=== PATIENT | female | born 1995 | race Caucasian/White ===

== ENCOUNTER 2024-04-20 09:35 | Outpatient (REF) | payer MEDICAID, SELFPAY ==
[2024-04-20 14:08] LABS: MANUAL DIFF FLAG NO
[2024-04-20 14:17] LABS: Basophils Percent Auto 0.2 % (0-2); Eosinophils Percent Auto 0.2 % (0-4); Hematocrit 39.2 % (37.0-47.0); Hemoglobin 12.9 g/dl (12.0-16.0); Imm Gran Abs Auto 0.02 X10*3/uL (0.00-0.03); Imm Gran Pct Auto 0.5 % (0.0-0.4); Lymphocytes Absolute Auto 1.4 X10*3/uL (1.2-4.9); Lymphocytes Percent Auto 32.1 % (20-40); Mean Corpuscular HGB Conc 32.9 g/dl (31.0-35.0); Mean Corpuscular Hemoglobin 28.2 pg (27.0-33.0); Mean Corpuscular Volume 85.8 fL (80.0-98.0); Mean Platelet Volume 10.5 fL (9.4-12.3); Monocytes Absolute Auto 0.3 X10*3/uL (0.1-1.2); Monocytes Percent Auto 6.3 % (2-11); Neutrophils Absolute Auto 2.7 x10*3/uL (2.0-8.3); Neutrophils Percent Auto 60.7 % (45-73); Platelet Count 263 X10*3/uL (160-400); Red Blood Count 4.57 X10*6/uL (4.20-5.50); Red Cell Distribution Width 13.2 % (11.0-16.0); White Blood Count 4.4 X10*3/uL (4.8-10.8)
[2024-04-20 14:27] LABS: Estimated Average Glucose 105 mg/dL; Hemoglobin A1C 121.7376 umol/L; Hemoglobin A1c % 5.3 % (<6.0); Total Hemoglobin (HGBA1C) 3507.0445 umol/L
[2024-04-20 14:44] LABS: Alanine Aminotransferase 16 U/L (0-31); Albumin Level 4.2 g/dL (3.5-5.0); Alkaline Phosphatase 66 U/L (39-117); Anion Gap 9 (12-20); Aspartate Amino Transferase 21 U/L (5-31); Bilirubin Direct 0.2 mg/dL (0.0-0.5); Bilirubin Total 0.4 mg/dL (0.0-1.0); Blood Urea Nitrogen 8 mg/dL (9-16); Calcium 9.2 mg/dL (8.4-10.2); Carbon Dioxide 28 mmol/L (22-29); Chloride 105 mmol/L (96-108); Cholesterol 143 mg/dL (<200); Estimated Glomerular Filt Rate > 60; Glucose Fasting 79 mg/dL (60-99); HDL Cholesterol 51 mg/dL (>40); LDL Cholesterol Calculated 83 mg/dL (<100); Potassium 3.8 mmol/L (3.3-5.1); Sodium 138 mmol/L (135-145); Total Protein 6.8 g/dL (6.5-8.0); Triglycerides 49 mg/dL (<150)
[2024-04-20 15:01] LABS: TSH reflex Free T4 1.56 uIU/mL (0.32-4.0)
== END 2024-04-20 09:36 | disposition home or self-care (01) ==
LOC: HO.CHCLDS 09:35
PROVIDERS: Visit Provider Pediatrics
DX: K29.70 Gastritis, unspecified, without bleeding (principal); E28.2 Polycystic ovarian syndrome
CPT/HCPCS: 36415; 80048; 80061; 80076; 83036; 84443; 85025

== ENCOUNTER 2024-05-16 16:31 | Outpatient (REF) | payer MEDICAID, SELFPAY ==
[2024-05-17 12:17] LABS: Adenovirus PCR Not Detected (Not Detect.); Bordetella parapertussis PCR Not Detected (Not Detect.); Bordetella pertussis PCR Not Detected (Not Detect.); Chlamydia pneumoniae PCR Not Detected (Not Detect.); Coronavirus 229E PCR Not Detected (Not Detect.); Coronavirus HKU1 PCR Not Detected (Not Detect.); Coronavirus NL63 PCR Not Detected (Not Detect.); Coronavirus OC43 PCR Not Detected (Not Detect.); Human metapneumovirus PCR Not Detected (Not Detect.); Influenza A PCR Not Detected (Not Detect.); Influenza B PCR Not Detected (Not Detect.); Mycoplasma pneumoniae PCR Not Detected (Not Detect.); Parainfluenza 1 PCR Not Detected (Not Detect.); Parainfluenza 2 PCR Not Detected (Not Detect.); Parainfluenza 3 PCR Not Detected (Not Detect.); Parainfluenza 4 PCR Not Detected (Not Detect.); RSV PCR Not Detected (Not Detect.); Rhino/Enterovirus PCR Not Detected (Not Detect.)
[2024-05-17 13:23] LABS: SARS-CoV-2 PCR Not Detected (Not Detect.)
== END 2024-05-16 16:32 | disposition home or self-care (01) ==
LOC: HO.CHCLNP 16:31
PROVIDERS: Visit Provider Registered Nurse
DX: B34.9 Viral infection, unspecified (principal)
CPT/HCPCS: 87633

== ENCOUNTER 2025-01-10 08:40 | Outpatient (REF) | payer MEDICAID, SELFPAY ==
--- OUTSIDE RECORDS SUMMARY | 2025-01-11 08:57 | XMS_ITS | Clinical Summary ---
Author Organization [facility] Address [address] [place] [phone] Phone Care Team Providers Care Lining Ironer Name Role Phone Unavailable Primary Care Provider [...]
--- OUTSIDE RECORDS SUMMARY | 2025-01-11 08:57 | XMS_ITS | Clinical Summary ---
Author Organization [facility] ity Address [address] [place] [address] Care Team Providers Care Gun Mechanic Name Role Phone Unavailable Primary Care Provider [...]
--- OUTSIDE RECORDS SUMMARY | 2025-01-11 08:57 | XMS_ITS | Encounter Summary ---
Author Organization [employer] Address [address] [facility] 7 [place] [address] Care Team Providers Care Assembler Installer Structures Name Role Phone Lisa Reddy MD Primary Care Provider [phone] Encounter Details Date Type Department Care Team ([facility] Contact Info) Description 04/20/[address] [facility] CHC MED & PEDS [address] [place], [place] [phone] Lisa Reddy MD [address] [place] [address] Social History Tobacco Use Types Packs/Day Years [...] EST) Adenovirus PCR Not Detected Not Detect. [facility] Bordetella pertussis PCR Not Detected Not Detect. [facility] Comment:Interpret results wi th caution. If B. pertussis isspecifically suspected, additional testing using analternate method is recommended. Bordetella parapertussis PCR Not Detected Not Detect. [facility] Chlamydia pneumoniae PCR Not Detected Not Detect. [facility] Coronavirus 229E PCR Not Detected Not Detect. [facility] Coronavirus HKU1 PCR Not Detected Not Detect. [facility] Coronavirus NL63 PCR Not Detected Not Detect. [facility] Coronavirus OC43 PCR Not Detected Not Detect. [facility] SARS-CoV-2 PCR Not Detected Not Detect. [facility] Comment:SARS-CoV-2 not detec tato by real-time RT-PCR.Note: If clinical suspicion for Sars-CoV-2 is high, continueto maintain precautions and consider repeat testing.Test results should be interpreted in the context ofclinical findings and other laboratory data.Rare polymorphisms exist that could lead to false-negativeor false-positive results. If results do not match theclinical findings, additional testing should be considered.Results reported to [facility].This test has been authorized by the FDA under the EmergencyUse Authorization (EUA) for use by authorized laboratories. Influenza A PCR Not Detected Not Detect. [facility] Influenza B PCR Not Detected Not Detect. [facility] Human metapneumovirus PCR Not Detected Not Detect. [facility] Rhino/Enterovirus PCR Not Detected Not Detect. [facility] Mycoplasma pneumoniae PCR Not Detected Not Detect. [facility] Parainfluenza 1 PCR Not Detected Not Detect. [facility] Parainfluenza 2 PCR Not Detected Not Detect. [facility] Parainfluenza 3 PCR Not Detected Not Detect. [facility] Parainfluenza 4 PCR Not Detected Not Detect. [facility] RSV PCR Not Detected Not Detect. [facility] Resp Panel NA Note See Note [facility] Comment:All results must be correlated [...] assay is performed by Multiplexed PCR, utilizing [employer]. 05/16/2024 3:00 PM EST 05/16/2024 5:23 PM EST us Chanel Caputo [facility] BLOOD ORDERABLES Final Res ult [facility] [address] [place] [address] [phone] documented in this encounter Visit Diagnoses Not on filedocumented in this encounter Additional Health Concerns Assessment Noted Time PHQ-9 Depression Total Score: 11 024 12:10 PM EDT documented as of this encounter Care Teams Assembler Installer Structures Relationship Specialty Start Date End Date Lisa Reddy MD [address] [place] [address] PCP - General Family Medicine 04/05/12 documented as of this encounter
--- OUTSIDE RECORDS SUMMARY | 2025-01-11 08:57 | XMS_ITS | Clinical Summary ---
Author Organization [facility] Address [address] [place] [address] Care Team Providers Care Side Trimmer Name Role Phone Unavailable Primary Care Provider [...] mcg/actuation inhalerIndication s:Mild intermittent asthma without complication ([facility]),Routine general medical examination at a health care facility Inhale 2 Puffs into the lungs every 4 (four) hours as needed for shortness of breath or wheezing 18 g 2 Active doxycycline hyclate (VIBRAMYCIN) 100 mg capsuleIndication s:Chlamydia Take 1 Capsule by mouth 2 (two) times daily 14 Capsule 1 2 Active fluoride, sodium, (CLINPRO 5000) 1.1 % psteIndications:C adrianna [place] twice a day every day for 2 minutes. Expectorate,bu t do not rinse,eat or drink for 30 minutes after using this. 112 g 3 2 Active Active Problems No known active problems Immunizations Immunization Administration Dates Next Due DTAP (DAPTACEL),5 PERTUSSIS ANTIGENS ,07/09/1997,1996,07/30,1996 Flu, Multi Dose 0.5 ML 03/30/2018,04/15/2017, Flu, Preservative Free 03/14/2022,03/14/2014 HEP B, PED/ADOL (QYORXDH-P-NVSJ/RECOMBIVAX-PEDS) 1996,1996,1996 HPV 9 (Gardasil) 06/28/2019 HPV, QUADRIVALENT 10/08/2007,06/09/2007,04/07/20 07 Hep B,adult,adjuvanted (HEPLISAV) 10/21/2021,10/21/2021 Hib (HbOC) 07/06/1997, 7,1996,10/1996 INFLUENZA, SEASONAL, INJECTABLE 03/08/2009,04/07 IPV (IPOL) 08/17/2000, 7,1996,10/1996 MENINGOCOCCAL MCV4P (MENACTRA) 12/08/2014,2006 MMR (MMR II/Priorix) 08/17/2000 Moderna COVID-19 Vaccine, re d cap blue label, 12+ Primary Series 10/16/2020,09/19/2020 [facility] State Funded Flu Vaccine 03/18/2013, 012,05/02/2010 TDAP [...] 08/29/2022 08/29/2021 Relationship Safety Screening/Counseling 08/29/2022 08/29/2021 [id number] ( season) 01/31/202418/2 021, 09/19/2020 Alcohol and [...] AG/AB, 4TH GEN NON-REAC TIVE NON-REAC TIVE [employer] [facility] Comment: HIV-1 antigen and HIV-1/HIV-2 antibodies [...] purpose. For additional information please refer to http://education.[employer]/faq/YMZ368 (This link is being provided for informational/ educational purposes only.) The performance of this assay has not been clinically validated in patients less than 2 years old. Blood Blood / Unknown 08/29/2021 2 :12 PM EDT 08/29/2021 2:13 PM EDT Morales Hooker PA-C LAB - BLOOD DRAW Final Result [facility] [address] [address], [employer] [facility] [address],[facility] [place] [address] from Last 3 Months or Most Recently Relevant to Health Maintenance Insurance [employer] Member Subscriber Plan / Payer (Ef fective 2021-Present) Name:Yesy Rojas Relation to Subscriber:Self Name:Yesy Rojas Payer ID:[id number] Type:Indemnity Address: [address] [address] [place] [address] [place]
== END 2025-01-10 08:41 | disposition home or self-care (01) ==
LOC: HO.LNP 08:40
PROVIDERS: Visit Provider Pediatrics
DX: Z01.419 Encounter for gynecological examination (general) (routine) without abnormal findings (principal); F41.9 Anxiety disorder, unspecified; F33.1 Major depressive disorder, recurrent, moderate
CPT/HCPCS: 88175

== ENCOUNTER 2025-01-10 10:03 | Outpatient (REF) | payer MEDICAID, SELFPAY ==
--- OUTSIDE RECORDS SUMMARY | 2025-01-10 11:02 | XMS_ITS | Encounter Summary ---
Author Organization [employer] Address [address] [facility] 7 [place] [address] Care Team Providers Care Cataract Lens Generator Name Role Phone Lisa Reddy MD Primary Care Provider [phone] Encounter Details Date Type Department Care Team ([facility] Contact Info) Description 04/20/2024 Orders Only [facility] CHC MED & PEDS [address] [place], [place] [phone] Lisa Reddy MD [address] [place] [address] Social History Tobacco Use Types Packs/Day Years Used Date Smoking Tobacco: Never Passive Smoke Exposure: Never Smokeless Tobacco: Never Alcohol Use Standard Drinks/Week Comments Never 0 (1 standard drink = 0.6 oz pur e alcohol) Depression Answer Date Recorded Patient Health Questionnaire-9 Score 11 02/19/2024 Patient Health Questionnaire-9 Score 11 02/19/2024 Last PHQ-9: Questionnaire Data Not on file 0 02/19/2024 Housing Stability Answer Date Recorded What is your housing situation today? I have alicia leigh 12/31/[address] you li ve. Do you have problems with any of the following? None of the above 12/31/2023 Food Insecurity Answer Date Recorded Within the past 12 months, y ou worried that your food would run out before you got money to buy more: Never True 12/31/2023 Within the past 12 months,th e food you bought just didn't last and you didn't have enough money to get more: Never True 06/2023 Transportation Answer Date Recorded In the past 12 months, has l ack of transportation kept you from medical appts, meetings, work or from getting things needed for daily living? No 12/31/2023 Utilities Answer Date Recorded In the past 12 months, has t he electric, gas, oil or water company threatened to shut off services in your home? No 12/31/2023 Depression Answer Date Recorded Patient Health Questionnaire-2 Score 3 02/19/2024 Internet Access Answer Date Recorded Internet Access Q1 Yes 02/01/2024 Internet Access Q2 Not on file 02/01/2024 Comments Unknown Sex and Gender Information Value Date Recorded Sex Assigned at Female 03/31/2022 10:22 AM EDT Legal Sex Female 10:22 AM EDT Gender Identity Female 03/31/2022 10:22 AM EDT Sexual Orientation Straight 03/31/2022 10 :22 AM EDT documented as of this encounter Plan of Treatment Not on file documented as of this encounter Procedures Procedure Name Priority Date/Time Associated Diagnosis Comments RESPIRATORY VIRAL PANEL PCR Routine 05/16/2024 3:00 PM EST documented in this encounter Results * Respiratory Viral Panel PCR (05/16/2024 3:00 PM EST) Adenovirus PCR Not Detected Not Detect. [facility] Bordetella pertussis PCR Not Detected Not Detect. [facility] Comment:Interpret results wi th caution. If B. pertussis isspecifically suspected, additional testing using analternate method is recommended. Bordetella parapertussis PCR Not Detected Not Detect. [facility] Chlamydia pneumoniae PCR Not Detected Not Detect. [facility] Coronavirus 229E PCR Not Detected Not Detect. [facility] Coronavirus HKU1 PCR Not Detected Not Detect. [facility] Coronavirus NL63 PCR Not Detected Not Detect. [facility] Coronavirus OC43 PCR Not Detected Not Detect. [facility] SARS-CoV-2 PCR Not Detected Not Detect. [facility] Comment:SARS-CoV-2 not detec tato by real-time RT-PCR.Note: If clinical suspicion for Sars-CoV-2 is high, continueto maintain precautions and consider repeat testing.Test results should be interpreted in the context ofclinical findings and other laboratory data.Rare polymorphisms exist that could lead to false-negativeor false-positive results. If results do not match theclinical findings, additional testing should be considered.Results reported to [facility].This test has been authorized by the FDA under the EmergencyUse Authorization (EUA) for use by authorized laboratories. Influenza A PCR Not Detected Not Detect. [facility] Influenza B PCR Not Detected Not Detect. [facility] Human metapneumovirus PCR Not Detected Not Detect. [facility] Rhino/Enterovirus PCR Not Detected Not Detect. [facility] Mycoplasma pneumoniae PCR Not Detected Not Detect. [facility] Parainfluenza 1 PCR Not Detected Not Detect. [facility] Parainfluenza 2 PCR Not Detected Not Detect. [facility] Parainfluenza 3 PCR Not Detected Not Detect. [facility] Parainfluenza 4 PCR Not Detected Not Detect. [facility] RSV PCR Not Detected Not Detect. [facility] Resp Panel NA Note See Note [facility] Comment:All results must be correlated with clinical findings.Negative results should not be used as the sole basis fordiagnosis, treatment, or other management decisions.A negative result does not exclude the possibility of viralor bacterial infection. Negative results may occur from thepresence of sequence variants in the region targeted by theassay, the presence of inhibitors, an infection caused by anorganism not detected by the panel, or lower respiratorytract infections that are not detected by a nasopharyngealswab specimen. Test results may also be affected byconcurrent antiviral/antibacterial therapy or levels oforganism in the specimen that are below the limit ofdetection for this test.This assay is performed by Multiplexed PCR, utilizing [employer] Film Array. 05/16/2024 3:00 PM EST 05/16/2024 5:23 PM EST us Chanel Caputo [facility] BLOOD ORDERABLES Final Res ult [facility] [address] [place] [address] [phone] documented in this encounter Visit Diagnoses Not on filedocumented in this encounter Additional Health Concerns Assessment Noted Time PHQ-9 Depression Total Score: 11 024 12:10 PM EDT documented as of this encounter Care Teams Cataract Lens Generator Relationship Specialty Start Date End Date Lisa Reddy MD [address] [place] [address] PCP - General Family Medicine 04/05/12 documented as of this encounter
--- OUTSIDE RECORDS SUMMARY | 2025-01-10 11:02 | XMS_ITS | Clinical Summary ---
Author Organization [facility] ity Address [address] [place] [address] Care Team Providers Care Fish Agent Name Role Phone Unavailable Primary Care Provider Unavailabl e Social History Tobacco Use Types Packs/Day Years Used Date Smoking Tobacco: Never Assessed Comments Unknown Sex and Gender Information Value Date Recorded Sex Assigned at Not on file Legal Sex Female 9:00 AM EST Gender Identity Not on file Sexual Orientation Not on file Plan of Treatment Health Maintenance Due Date Last Done Comments DTaP,Tdap,and Td Vaccines (1 - Tdap) 2015 Hepatitis B Vaccines (1 of 3 - 19+ 3-dose series) 2015 Cervical Cancer Screening: P ap Smear 2017 HIV Screening 05/04/2022 Hepatitis C Screening 05/04/2022 Social Influencers of Health Screening 05/04/2022 COVID-19 Vaccine ( - 2023-2 5 season) 2024 Depression Screening 06/01/2024 Influenza Vaccine (#1) 2025 HIB Vaccines Aged Out No longer eligi ble based on patient's age to complete this topic HPV Vaccines Aged Out No longer eligi ble based on patient's age to complete this topic Hepatitis A Vaccines Aged Out No long er eligible based on patient's age to complete this topic IPV Vaccines Aged Out No longer eligi ble based on patient's age to complete this topic MMR Vaccines Aged Out No longer eligi ble based on patient's age to complete this topic Meningococcal ACWY Vaccine Aged Out N o longer eligible based on patient's age to complete this topic Meningococcal B Vaccine Aged Out No l onger eligible based on patient's age to complete this topic Pneumococcal Vaccine: Pediat rics (0 to 5 Years) and At-Risk Patients (6 to 49 Years) Aged Out No longer eligible b ased on patient's age to complete this topic RSV Immunization Patients Un michael 20 months Aged Out No longer eligible b ased on patient's age to complete this topic Varicella Vaccines Aged Out No longer eligible based on patient's age to complete this topic
--- OUTSIDE RECORDS SUMMARY | 2025-01-10 11:02 | XMS_ITS | Clinical Summary ---
Author Organization [facility] Address [address] [place] [address] Care Team Providers Care Race Steward Name Role Phone Unavailable Primary Care Provider Unavailabl e Source Comments PLEASE NOTE, if this patient is a minor, it may be UNLAWFUL to discuss sensitive information that is contained in these records (such as FAMILY PLANNING, MENTAL HEALTH or SUBSTANCE ABUSE) with the minor patient's parent or other person without the patient's specific authorization.[facility] Medications ALBUTEROL INHLIndications:R outine general medical examination at a health care facility Inhale 90 mcg into the lungs as needed 9 Active albuterol sulfate 90 mcg/actuation inhalerIndication s:Mild intermittent asthma without complication ([facility]),Routine general medical examination at a health care facility Inhale 2 Puffs into the lungs every 4 (four) hours as needed for shortness of breath or wheezing 18 g 2 Active doxycycline hyclate (VIBRAMYCIN) 100 mg capsuleIndication s:Chlamydia Take 1 Capsule by mouth 2 (two) times daily 14 Capsule 1 2 Active fluoride, sodium, (CLINPRO 5000) 1.1 % psteIndications:C adrianna [place] twice a day every day for 2 minutes. Expectorate,bu t do not rinse,eat or drink for 30 minutes after using this. 112 g 3 2 Active Active Problems No known active problems Immunizations Immunization Administration Dates Next Due DTAP (DAPTACEL),5 PERTUSSIS ANTIGENS ,07/09/1997,1996,07/30,1996 Flu, Multi Dose 0.5 ML 03/30/2018,04/15/2017, Flu, Preservative Free 03/14/2022,03/14/2014 HEP B, PED/ADOL (TZXUBWQ-U-FYDL/RECOMBIVAX-PEDS) 1996,1996,1996 HPV 9 (Gardasil) 06/28/2019 HPV, QUADRIVALENT 10/08/2007,06/09/2007,04/07/20 07 Hep B,adult,adjuvanted (HEPLISAV) 10/21/2021,10/21/2021 Hib (HbOC) 07/06/1997, 7,1996,10/1996 INFLUENZA, SEASONAL, INJECTABLE 03/08/2009,04/07 IPV (IPOL) 08/17/2000, 7,1996,10/1996 MENINGOCOCCAL MCV4P (MENACTRA) 12/08/2014,2006 MMR (MMR II/Priorix) 08/17/2000 Moderna COVID-19 Vaccine, re d cap blue label, 12+ Primary Series 10/16/2020,09/19/2020 [facility] Flu Vaccine 03/18/2013, 012,05/02/2010 TDAP 12/08/2014,04/07/2007 Td (adult),2 Lf tetanus toxo id (TDVAX), preservative free 11/08/2021 Varicella (Varivax), Live Vaccine 12/19/2008, Social History Tobacco Use Types Packs/Day Years Used Date Smoking Tobacco: Never Smokeless Tobacco: Never Alcohol Use Standard Drinks/Week Comments Yes 0 (1 standard drink = 0.6 oz pur e alcohol) occ Social Connections Answer Date Recorded Connectedness 0 02/07/2024 Financial Resource Strain Answer Date R ecorded Financial Resource Strain 0 2020 Stress Answer Date Recorded Stress 0 09/19/2020 Physical Activity Answer Date Recorded Physical Activity 0 09/19/2020 Food Insecurity Answer Date Recorded Food 0 02/25/2024 Transportation Needs Answer Date Record ed Transportation 0 09/19/2020 Housing Stability Answer Date Recorded Housing 0 09/19/2020 Safety and Environment Answer Date Trent rded Safety 0 08/29/2021 Utilities Answer Date Recorded Utilities 0 09/19/2020 Employment Answer Date Recorded Employment 0 09/19/2020 Comments No Sex and Gender Information Value Date Recorded Sex Assigned at Female 09/05/2021 6:45 AM PDT Legal Sex Female 11:00 AM PST Gender Identity Female 09/05/2021 6:45 AM PDT Sexual Orientation Straight 09/05/2021 6: 45 AM PDT Last Filed Vital Signs Vital Sign Reading Time Taken Comments Blood Pressure 114/75 12/19/2021 9:47 AM EDT Pulse 66 12/19/2021 9:47 AM EDT Temperature 37.2 C (99 F) 08/29/2021 1:19 PM EDT Respiratory Rate - - Oxygen Saturation 98% 08/29/2021 1:19 PM EDT Inhaled Oxygen Concentration - - Weight 57.6 kg (127 lb) 08/29/2021 1:19 PM EDT Height 144.8 cm (4' 9 ) 08/29/2021 1:19 PM EDT Body Mass Index 27.48 08/29/2021 1:19 PM EDT Plan of Treatment Health Maintenance Due Date Last Done Comments Anxiety Screening 1996 Dental FMX/Pano 1996 HPV Screening 1996 Hepatitis C Screening 1996 Pap + HPV 1996 Tobacco Screening 1996 Cervical Cancer Screening 2017 Pap Smear 2017 Annual Wellness (Adult): Indicated (All Coverage) 08/29/2022 08/29/2021 Relationship Safety Screening/Counseling 08/29/2022 08/29/2021 [id number] ( season) 01/31/202418/2 021, 09/19/2020 Alcohol and Drug Screen 06/01/2024 08/29/2021 Depression Annual Screen 06/01/2024 08/29/2021 Hypertension Screening (#1) 12/18/2024 Dental BW 12/31/2024 12/30/2023 Dental Examination 12/31/2024 12/30/2023 Dental Perio Charting 12/31/2024 12/30/2023 Dental Prophy 12/31/2024 12/30/2023 Imm-Influenza (#1) 2025 03/14/2022, 1 , 04/15/2017, Additional history exists Imm-DTaP/Tdap/Td (9 - Td or Tdap) 11/09/2031 11/08/2021, 12/08/2014, 04/07/2007, Additional history exists Imm-Hepatitis B Completed 10/21/2021, 08/31, 1996, Additional history exists HIV Screening Completed 10/29/2021, 10/01, 08/29/2021 Cervical Ablation/Cold-Knife Conization Discontinued Cervical Cryotherapy Discontinued Colposcopy Discontinued Endometrial Biopsy Discontinued Excision/Leep Discontinued HPV Genotyping Discontinued Vaginal Pap Discontinued Vulvoscopy Discontinued Procedures Procedure Name Priority Date/Time Associated Diagnosis Comments COMP PERIODONTAL EVALUATION - NEW/EST PATIENT Routine 12/30/2023 4:20 PM EDT Encounter for dental examination BITEWINGS - FOUR RADIOGRAPHIC IMAGES Routine 12/30/2023 4:20 PM EDT Encounter for dental examination Full PROPHYLAXIS - ADULT Routine 12/30/2023 4:20 PM EDT Encounter for dental examination Full PERIODIC ORAL EVALUATION ESTABLISHED PATIENT Routine 12/30/2023 4:20 PM EDT Encounter for dental examination HIV 1/2 AG & AB W/RFLX (4TH GEN) Routine 08/29/2021 2:12 PM EDT Routine general medical examination at a health care facility from Last 3 Months or Most Recently Relevant to Health Maintenance Results * HIV 1/2 AG & AB W/RFLX (4TH GEN) (08/29/2021 2:12 PM EDT) HIV AG/AB, 4TH GEN NON-REAC TIVE NON-REAC TIVE [facility] Comment: HIV-1 antigen and HIV-1/HIV-2 antibodies were not detected. There is no laboratory evidence of HIV infection. PLEASE NOTE: This information has been disclosed to you from records whose confidentiality may be protected by state law. If your state requires such protection, then the state law prohibits you from making any further disclosure of the information without the specific written consent of the person to whom it pertains, or as otherwise permitted by law. A general authorization for the release of medical or other information is NOT sufficient for this purpose. For additional information please refer to http://education.[employer]/faq/TFI095 (This link is being provided for informational/ educational purposes only.) The performance of this assay has not been clinically validated in patients less than 2 years old. Blood Blood / Unknown 08/29/2021 2 :12 PM EDT 08/29/2021 2:13 PM EDT Morales Hooker PA-C LAB - BLOOD DRAW Final Result [facility] [address] [address], [facility] [address],[facility] [place] [address] from Last 3 Months or Most Recently Relevant to Health Maintenance Insurance [employer] Member Subscriber Plan / Payer (Ef fective 2021-Present) Name:Yesy Rojas Relation to Subscriber:Self Name:Yesy Rojas Payer ID:[id number] Type:Indemnity Address: [address] [address] [place] [address] [place]
--- OUTSIDE RECORDS SUMMARY | 2025-01-10 11:02 | XMS_ITS | Clinical Summary ---
Author Organization [facility] Address [address] [place] [phone] Phone Care Team Providers Care Rail Project Engineer Name Role Phone Unavailable Primary Care Provider Unavailabl e Immunizations Immunization Administration Dates Next Due DTaP 5 08/17/2000, 8,1996, 997,1996 HPV, Quadrivalent 10/08/2007,06/09/2007,04/07/20 07 Hep B, ped/adol 1996,1996,1996 Hib (HbOC) 07/06/1997, 7,1996, 997 IPV 08/17/2000, 7,1996, 997 Influenza Split 05/02/2010 Influenza, injectable, trivalent 03/08/2009,11/11/2006 MMR 08/17/2000 Meningococcal Conj (Menactra) MCV4P 04/07/2007 Tdap 04/07/2007 Varicella 12/19/2008,09/21/2002 Family History Relation Name Status Comments Father Alive Father: , Alive and well Half-Brother 1 Alive Half brother (P): Asthma Half-Brother 2 Alive Half brother (M): Alive and well, Alive and well, Alive and well Half-Sister Alive Half sister (M) : Alive and well, Alive and well Mother Alive Mother: Alive a nd well Other Family history of Diabetes mellitus, Family history of Migraines Sister Alive Twin sister: Al binu and well Social History Tobacco Use Types Packs/Day Years Used Date Smoking Tobacco: Never Assessed Comments Unknown Sex and Gender Information Value Date Recorded Sex Assigned at Not on file Legal Sex Female 4:40 PM EDT Gender Identity Not on file Sexual Orientation Not on file Last Filed Vital Signs Vital Sign Reading Time Taken Comments Blood Pressure 90/50 05/02/2010 12:00 AM EST Pulse - - Temperature 36.4 C (97.5 F) 07/18/2010 12:00 AM EST Respiratory Rate - - Oxygen Saturation - - Inhaled Oxygen Concentration - - Weight 35.8 kg (79 lb) 07/18/2010 12:00 AM EST Height 146.1 cm (4' 9.5 ) 05/02/2010 12:00 AM ES T Body Mass Index - - Plan of Treatment Health Maintenance Due Date Last Done Comments DTaP,Tdap,and Td Vaccines (7 - Td or Tdap) 04/07/2017 04/07/2007, 08/17/2000, 07/09/1997, Additional history exists COVID-19 Vaccine () 01/31/2024 Influenza Vaccines (#1) 2024 05/02/20 10, 03/08/2009, 04/07/2007 Hepatitis B Vaccines Completed 1996, 1996, 1996 HIB Vaccines Completed 07/06/1997, 10/30, 1996, Additional history exists IPV Vaccines Completed 08/17/2000, 10/30, 1996, Additional history exists MMR Vaccines Completed 08/17/2000 Meningococcal Vaccine Aged Out 04/07/2007 No justo christos eligible based on patient's age to complete this topic HPV Vaccines Completed 10/08/2007, 01/2008, 04/07/2007 Varicella Vaccines Completed 12/19/2008, 09/21/2002 Hepatitis A Vaccines Aged Out No long er eligible based on patient's age to complete this topic Men B Vaccine Aged Out No longer elig ible based on patient's age to complete this topic Pneumococcal Vaccine Aged Out No long er eligible based on patient's age to complete this topic
[2025-01-10 14:04] LABS: MANUAL DIFF FLAG NO
[2025-01-10 14:22] LABS: Hematocrit 38.7 % (37.0-47.0); Hemoglobin 12.7 g/dl (12.0-16.0); Imm Gran Abs Auto 0.03 X10*3/uL (0.00-0.03); Imm Gran Pct Auto 0.6 % (0.0-0.4); Lymphocytes Absolute Auto 1.6 X10*3/uL (1.2-4.9); Mean Corpuscular HGB Conc 32.8 g/dl (31.0-35.0); Mean Corpuscular Hemoglobin 27.9 pg (27.0-33.0); Mean Corpuscular Volume 84.9 fL (80.0-98.0); NRBC Abs Auto 0.000 X10*3/uL (0.0-0.012); NRBC Pct Auto 0.0 /100WBC (0.0-0.2); Platelet Count 264 X10*3/uL (160-400); Red Blood Count 4.56 X10*6/uL (4.20-5.50); White Blood Count 5.4 X10*3/uL (4.8-10.8)
[2025-01-10 14:48] LABS: Alanine Aminotransferase 48 U/L (0-31); Albumin Level 4.5 g/dL (3.5-5.0); Alkaline Phosphatase 66 U/L (39-117); Anion Gap 11 (12-20); Aspartate Amino Transferase 48 U/L (5-31); Blood Urea Nitrogen 12 mg/dL (9-16); Calcium 9.2 mg/dL (8.4-10.2); Carbon Dioxide 27 mmol/L (22-29); Chloride 108 mmol/L (96-108); Cholesterol 152 mg/dL (<200); Estimated Glomerular Filt Rate > 60; HDL Cholesterol 44 mg/dL (>40); Lipase 24 U/L (8-78); Potassium 4.3 mmol/L (3.3-5.1); Sodium 142 mmol/L (135-145); Total Protein 7.0 g/dL (6.5-8.0); Triglycerides 92 mg/dL (<150)
[2025-01-10 15:29] LABS: CT PCR NOT DETECTED (Not Detect.); NG PCR NOT DETECTED (Not Detect.)
[2025-01-11 04:02] LABS: HIV Num 1 0.05 S/CO (0.00-0.99); ~HepC Num1 0.09 S/CO (0.00-0.79); ~Hepatitis C Antibody Nonreactive (Nonreactive)
== END 2025-01-10 10:04 | disposition home or self-care (01) ==
LOC: HO.CHCLDS 10:03
PROVIDERS: Visit Provider Pediatrics
DX: Z11.4 Encounter for screening for human immunodeficiency virus [HIV] (principal); Z11.3 Encounter for screening for infections with a predominantly sexual mode of transmission; Z11.8 Encounter for screening for other infectious and parasitic diseases; Z01.419 Encounter for gynecological examination (general) (routine) without abnormal findings; Z11.59 Encounter for screening for other viral diseases; F33.1 Major depressive disorder, recurrent, moderate; F41.9 Anxiety disorder, unspecified
CPT/HCPCS: 36415; 80053; 80061; 82306; 83690; 84443; 85025; 86803; 87389; 87491; 87591

== ENCOUNTER 2025-02-21 18:06 | Outpatient (REF) | payer MEDICAID, SELFPAY ==
--- OUTSIDE RECORDS SUMMARY | 2025-02-21 18:20 | XMS_ITS | Encounter Summary ---
Author Organization [employer] Address 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 Name Role Phone Lisa Reddy MD Primary Care Provider [phone] Encounter Details Date Type Department Care Team ([facility] st Contact Info) Description 02/21/2025 6:20 PM EDT Office Visit [facility] [address], [place] [id number] Susan Trevino FNP [address] [place] [address] Urinary tract infection without hematuria, site unspecified Social History Tobacco Use Types Packs/Day Years Used Date Smoking Tobacco: Never Passive Smoke Exposure: Never Smokeless Tobacco: Never Alcohol Use Standard Drinks/Week Comments Never 0 (1 standard drink = 0.6 oz pur e alcohol) Depression Answer Date Recorded Patient Health Questionnaire-9 Score 5 01/10/2025 Patient Health Questionnaire-9 Score 5 01/10/2025 Last PHQ-9: Questionnaire Data Not on file 0 01/10/2025 Housing Stability Answer Date Recorded What is your housing situation today? I have alicia leigh 01/02/[address] you li ve. Do you have problems with any of the following? None of the above 01/02/2025 Food Insecurity Answer Date Recorded Within the past 12 months, y ou worried that your food would run out before you got money to buy more: Never True 01/02/2025 Within the past 12 months,th e food you bought just didn't last and you didn't have enough money to get more: Never True 08/2024 Transportation Answer Date Recorded In the past 12 months, has l ack of transportation kept you from medical appts, meetings, work or from getting things needed for daily living? No 01/02/2025 Utilities Answer Date Recorded In the past 12 months, has t he electric, gas, oil or water company threatened to shut off services in your home? No 01/02/2025 Depression Answer Date Recorded Patient Health Questionnaire-2 Score 1 01/10/2025 Internet Access Answer Date Recorded Internet Access Q1 Yes 01/02/2025 Internet Access Q2 Not on file 01/02/2025 Comments Unknown Sex and Gender Information Value Date Recorded Sex Assigned at Female 03/31/2022 10:22 AM EDT Legal Sex Female 10:22 AM EDT Gender Identity Female 03/31/2022 10:22 AM EDT Sexual Orientation Straight 03/31/2022 10 :22 AM EDT documented as of this encounter Last Filed Vital Signs Vital Sign Reading Time Taken Comments Blood Pressure 110/70 02/21/2025 5:52 PM EDT Pulse 70 02/21/2025 5:52 PM EDT Temperature 37.3 C (99.1 F) 02/21/2025 5:52 PM EDT Respiratory Rate 16 02/21/2025 5:52 PM EDT Oxygen Saturation 98% 02/21/2025 5:52 PM EDT Inhaled Oxygen Concentration - - Weight 57.6 kg (127 lb) 02/21/2025 5:52 PM EDT Height 144.8 cm (4' 9 ) 02/21/2025 5:52 PM EDT Body Mass Index 27.48 02/21/2025 5:52 PM EDT documented in this encounter Progress Notes * SHELLI Gamboa - 02/21/2025 6:20 PM EDT Subjective Patient ID: Yesy Rojas is a 29 y.o. female. Yesy reports she thinks she has an UTI. She states the symptoms started yesterday, believes it due to starting new job and held urine all day not able to use BR. No history of UTI. UTI Onset quality: Sudden Duration: 1 day Timing: Constant Progression: Worsening Chronicity: New Associated symptoms: no abdominal pain, no fatigue, no headaches and no nausea Review of Systems Constitutional: Negative for fatigue. Gastrointestinal: Negative for abdominal pain and nausea. Genitourinary: Positive for dysuria, frequency, hematuria and urgency. Negative for flank pain, menstrual problem, vaginal bleeding and vaginal discharge. Neurological: Negative for headaches. Objective BP 110/70 (BP Location: Left arm, Patient Position: Sitting, BP Cuff Size: Adult) Pulse 70 Temp99.1 ??F (37.3 ??C) (Oral) Resp 16 Ht 4' 9 (1.448 m) Wt 127 lb (57.6 kg) LMP 02/01/2025 (Approximate) SpO2 98% BMI 27.48 kg/m?? Physical Exam Constitutional: Appearance: Normal appearance. HENT: Head: Normocephalic. Right Ear: External ear normal. Left Ear: External ear normal. Nose: Nose normal. Mouth/Throat: Mouth: Mucous membranes are moist. Eyes: Conjunctiva/sclera: Conjunctivae normal. Cardiovascular: Rate and Rhythm: Normal rate and regular rhythm. Heart sounds: Normal heart sounds. Pulmonary: Effort: Pulmonary effort is normal. Breath sounds: Normal breath sounds. Musculoskeletal: General: Normal range of motion. Cervical back: Normal range of motion and neck supple. Skin: General: Skin is warm and dry. Capillary Refill: Capillary refill takes less than 2 seconds. Neurological: Mental Status: She is alert and oriented to person, place, and time. Psychiatric: Mood and Affect: Mood normal. Behavior: Behavior normal. Thought Content: Thought content normal. Judgment: Judgment normal. Assessment/Plan Diagnoses and all orders for this visit: Urinary tract infection without hematuria, site unspecified Sx consistent with uncomplicated UTI Urine analysis and culture Increase fluids Pyridium 100 mg TID x 2 days PRN Pyridium may turn your urine or your tears orange/red, which is a side effect of the medication andis normal Macrobid 100 mg po bid x 5 days (ensure creatinine clearance over 30) RTC if sx worsen or persist - Culture, Urine, Routine Other orders - nitrofurantoin, macrocrystal-monohydrate, (Macrobid) 100 MG capsule; Take 1 capsule (100 mg) by mouth 2 times daily for 5 days. - phenazopyridine (Pyridium) 100 MG tablet; Take 1 tablet (100 mg) by mouth if needed in the morning, at noon, and at bedtime for bladder spasms for up to 2 days. - POCT Urinalysis documented in this encounter Plan of Treatment Scheduled Orders Name Type Priority Associated Diagnoses Orde r Schedule Culture, Urine, Routine Microbiology Routine Urinary tract infection without hematuria, site unspecified Ordered: 02/21/2025 documented as of this encounter Procedures Procedure Name Priority Date/Time Associated Diagnosis Comments POCT URINALYSIS DIPSTICK Routine 02/21/2025 6:01 PM EDT Urinary tract infection without hematuria, site unspecified documented in this encounter Results * (ABNORMAL) POCT Urinalysis (02/21/2025 6:01 PM EDT) Color, UA Light Yellow Clarity, UA Cloudy Glucose, UA Negative Bilirubin, UA Negative Ketones, UA Positive Comment:Trace Spec Grav, UA 1.025 Blood, UA Positive(A) Negative, None Detected Comment:small pH, UA 7.0 Protein, UA Trace Comment:100mg/dL Urobilinogen, UA 1.0 Leukocytes, UA Moderate(A) Negative, Rare, Trace Nitrite, UA Positive(A) Negative, None Detected Appearance, UA slightly cloudy QC Media Lot # [id number] Lot# Expiration Date Urine 02/21/2025 6:01 PM EDT Susan MARQUES POINT OF CARE TEST ENTER/EDIT O RDERABLES Final Result documented in this encounter Visit Diagnoses Diagnosis Urinary tract infection without hematuria, site unspecified documented in this encounter Additional Health Concerns Assessment Noted Time PHQ-9 Depression Total Score: 5 01/11/20 25 9:35 AM EDT documented as of this encounter Care Teams 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
--- OUTSIDE RECORDS SUMMARY | 2025-02-22 14:52 | XMS_ITS | Clinical Summary ---
Author Organization [employer] Address [address] [place] [address] [address] [place] [address] Care Team Providers Care Casing Flusher Name Role Phone Lisa Reddy MD Primary Care Provider [phone] Allergies No known active allergies Medications * This document contains information received from the source organization and may not represent a complete record from that organization. ondansetron (Zofran) 4 MG tablet Take 1 tablet (4 mg) by mouth every 8 (eight) hours if needed for nausea or vomiting for up to 10 doses. 15 tablet 11/05/19 24 Active spironolactone (Aldactone) 50 MG tablet Take 1 tablet (50 mg) by mouth Once per day. 30 tablet 11 12/31/19 24 Active ketoconazole (NIZOral) 2 % shampooIndication s:Androgenetic alopecia Apply topically 2 (two) times a week. 120 mL 1 04/28/20 24 Active ALBUTEROL SULFATE HFA INIndications:Mil d intermittent asthma with acute exacerbation Inhale 90 mcg if needed (inhale every 4 hrs as needed). 10/15/19 19 Active ergocalciferol (Vitamin D-2) 1.25 MG (81024 UT) capsuleIndication s:Mild intermittent asthma with acute exacerbation Take 50,000 Units by mouth 1 (one) time per week. 06/30/19 19 Active budesonide-formot tita (Symbicort) 80-4.5 MCG/ACT inhalerIndication s:Mild intermittent asthma with acute exacerbation Inhale 2 puffs in the morning and at bedtime. Rinse mouth with water after use to reduce after taste and incidence of candidiasis. Do not swallow. 1 each 1 05/16/20 24 025 Active albuterol (2.5 MG/3ML) 0.083% nebulizer solutionIndicatio ns:Mild intermittent asthma with acute exacerbation Take 3 mL (2.5 mg) by nebulization Every 4-6 hours as needed for wheezing or shortness of breath. 30 mL 3 05/16/20 24 025 Active econazole nitrate 1 % creamIndications: Tinea corporis Apply topically Once per day. 30 g 06/29/19 25 026 Active fluconazole (Diflucan) 150 MG tablet TAKE 1 TABLET (ORAL) ONCE DAILY AT BEDTIME FOR 2 DAYS 07/14/19 25 Active triamcinolone (Kenalog) 0.1 % creamIndications: Skin rash Apply topically if needed in the morning and at bedtime for irritation or rash. 15 g 2 11/02/19 25 Active finasteride (Proscar) 5 MG tabletIndications :Androgenetic alopecia Take 1 tablet (5 mg) by mouth Once per day. Do not crush, chew, or split. 30 tablet 11/02/19 25 026 Active multivitamin () 27-0.8 MG tabletIndications :Encounter for gynecological examination (general) (routine) without abnormal findings,Anxiety, Moderate episode of recurrent major depressive disorder (CMS/HCC) TAKE 1 TABLET BY MOUTH EVERY DAY 90 tablet 3 01/11/20 25 Active SUMAtriptan (Imitrex) 50 MG tablet Take 1 tablet (50 mg) by mouth 1 (one) time if needed for migraine for up to 1 dose. May repeat dose once in 2 hours if no relief. Do not exceed 2 doses in 24 hours. 9 tablet 2 01/11/20 25 Active omeprazole (PriLOSEC) [address] capsule Take 1 capsule (20 mg) by mouth Once per day. 90 capsule 1 01/11/20 25 Active Minoxidil 5 % foamIndications:A ndrogenetic alopecia To use daily 60 g 01/11/20 25 Active albuterol 108 (90 Base) MCG/ACT inhalerIndication s:Mild intermittent asthma with acute exacerbation Inhale 2 puffs Every 4-6 hours as needed for wheezing or shortness of breath. 18 g 3 01/11/20 25 026 Active nitrofurantoin, macrocrystal-mono hydrate, (Macrobid) 100 MG capsule Take 1 capsule (100 mg) by mouth 2 times daily for 5 days. 10 capsule 02/22/20 25 025 Active phenazopyridine (Pyridium) 100 MG tabletIndications :Bladder Mucosa Irritation Take 1 tablet (100 mg) by mouth if needed in the morning, at noon, and at bedtime for bladder spasms for up to 2 days. 6 tablet 02/22/20 25 025 Active Active Problems Problem Noted Date Diagnosed Date Female infertility 05/16/2024 Androgenetic alopecia 04/26/2024 Anxiety 12/31/2023 Assessment & Plan (02/19/2024 12:25 PM EDT): During [facility] Consult Yesy presenting with excessive worry/anxiety, difficulty controlling worry, anxiety/worry associated to restlessness and/or feeling keyed-up/On edge , easily fatigued , difficulty concentrating and/or mind going blank , irritability, and sleep disturbance difficulty falling asleep, and Fear ; for a period of 18+ mo, for most or all symptoms in the context of family issues and housing. Pt carries a diagnosis for Major Depressive Disorder. Today she presented with anxiety sxs due to experiencing complicated family dynamics. She recently moved in with her boyfriend to avoid family conflicts at home. Pt endorsed feelings of resentment and abandonment associated with lack of emotional connection with parents since childhood. Difficulty trusting others is a barrier to develop interpersonal relationships. Further study needed to rule out PTSD. clinician engaged patient with active/reflective listening and provided a safe space for patient to share her experiences and concerns. Reviewed and assessed for risk, current stressors and protective factors. Yesy was self-referred to [facility] for same-day appointments. Recurrent major depressive disorder 12/31/2023 Migraines 11/05/2023 Gastroesophageal reflux disease 02/03/2017 Dyspnea on exertion 07/13/2012 Resolved Problems Problem Noted Date Diagnosed Date Resolved Date Mild intermittent asthma wit h acute exacerbation 05/19/2024 08/08/2024 Assessment & Plan (05/19/2024 11:24 AM EST): - No current active wheezing on auscultation of lungs - Rapid testing for COVID, flu A&B neg. Resp viral panel sent to lab - Shared decision making to start Symbicort 2 puffs BID to assist with symptoms. Reviewed rinse mouth after use. - Cont with albuterol PRN - Follow up with any worsening or persistence of symptoms Encounters Date Type Department Care Team Description 02/21/2025 6:20 PM EDT Office Visit [facility] [address] [place] [phone] Susan Trevino FNP Urinary tract infection without hematuria, site unspecified 02/21/2025 Travel 02/21/2025 Telephone [facility] [address] [place] [phone] Lisa Reddy MD Nurse Triage 01/13/2025 Results Follow-Up [facility] [address] [place] [address] Lisa Reddy MD Pap Smear, Chlamydia/N. Gonorrhoeae RNA, TMA, Vaginal, CBC auto differential, Additional followed-up results: 7 01/10/2025 9:15 AM EDT Office Visit [facility] [address] [place] [address] Lisa Reddy MD Encounter for gynecological examination (general) (routine) without abnormal findings (Primary Dx); Anxiety; Moderate episode of recurrent major depressive disorder (CMS/HCC); Androgenetic alopecia; Mild intermittent asthma with acute exacerbation 01/10/2025 Travel 01/02/2025 Patient Outreach [facility] [address] [place] [address] [phone] Lisa Reddy MD Pre-visit Planning (SDOH screening negative and Tobacco screening negative) from Last 3 Months Immunizations Immunization Administration Dates Next Due DTaP, 5 pertussis antigens 08/17/2000,,1996,08/11,1996 HPV 9-Valent 06/28/2019 HPV, Quadrivalent 10/08/2007,06/09/2007,04/07/20 07 Hep B, Adolescent or Pediatric 1996,1996,1996 HepB-CpG 10/21/2021,09/19/2021 Hib (HbOC) 07/06/1997, 7,1996,07/07 IPV 08/17/2000, 7,1996,07/07 Influenza injectable quadriv alent IIV4 with preservative 03/30/2018,04/15/2017,04/14/2016 Influenza injectable quadriv alent preservative free 03/14/2022,03/14/2014 Influenza, IIV3, injectable 03/08/2009, 7 Influenza, Split (incl. joss fied surface antigen) 03/18/2013,04/05/2012,05/02/2010 MMR 08/17/2000 Meningococcal MCV4P ACYW-135 12/08/2014,04/07/20 07 TD (adult), 2 Lf tetanus tox oid, preservative free, adsorbed 11/08/2021 Tdap 12/08/2014,04/07/2007 Varicella 12/19/2008,09/21/2002 Social History Tobacco Use Types Packs/Day Years Used Date Smoking Tobacco: Never Passive Smoke Exposure: Never Smokeless Tobacco: Never Tobacco Cessation:Counseling Given: Not Answered Alcohol Use Standard Drinks/Week Comments Never 0 [...] Orientation Straight 03/31/2022 10 :22 AM EDT Last Filed Vital Signs Vital Sign Reading [...] Mass Index 27.48 02/21/2025 5:52 PM EDT Plan of Treatment Health Maintenance Due Date Last Done Comments Family Planning (PISQ) 2011 Pneumococcal Vaccine: Pediatrics (0 to 5 Years) and At-Risk Patients (6 to 49) Years (1 of 2 - PCV) 2015 COVID-19 Vaccine (3 - season) 2025 10/16/2020, 09/19/2020 Influenza Vaccine (#1) 2025 , 03/30/2018, 04/15/2017, Additional history exists SDOH Screening 01/02/2026 01/02/2025 Alcohol/Substance Use Screening 01/10/2026 01/10/2025 Depression Screening 01/10/2026 01/10/2025, 01/11/20 25 Disability Screening 01/10/2026 01/10/2025 Tobacco Screening 02/21/2026 02/21/2025 Pap Smear 01/11/2028 01/10/2025, 10/01/2021 DTaP/Tdap/Td Vaccines (9 - Td or Tdap) 11/09/2031 11/08/2021, 12/08/2014, 04/07/2007, Additional history exists Zoster Vaccines (1 of 2) 2046 RSV Patients and Patients Aged 60 years or older (1 - 1-dose 75+ series) 2071 HIB Vaccines Completed 07/06/1997, 10/30, 1996, Additional history exists IPV Vaccines Completed 08/17/2000, 10/30, 1996, Additional history exists Meningococcal Vaccine Completed 12/08/2014, 007 HPV Vaccines Completed 06/28/2019, 01/2008, 06/09/2007, Additional history exists Hepatitis B Vaccines Completed 10/21/2021, 09/19/2021, 1996, Additional history exists HIV Screening Completed 01/10/2025, 10/01, 08/29/2021, Additional history exists Hepatitis C Screening Completed 01/10/2025, 022 Hepatitis A Vaccines Aged Out No long er eligible based on patient's age to complete this topic Meningococcal B Vaccine Aged Out No l onger eligible based on patient's age to complete this topic RSV under 20 months Aged Out No longe r eligible based on patient's age to complete this topic Rotavirus Vaccines Aged Out No longer eligible based on patient's age to complete this topic Procedures Procedure Name Priority Date/Time Associated Diagnosis Comments POCT URINALYSIS DIPSTICK Routine 02/21/2025 6:01 PM EDT Urinary tract infection without hematuria, site unspecified HIV 1/2 ANTIGEN/ANTIBODY, FOURTH GENERATION W/RFL Routine 01/10/2025 10:06 AM EDT Encounter for gynecological examination (general) (routine) without abnormal findings Anxiety Moderate episode of recurrent major depressive disorder (CMS/HCC) HEPATITIS C AB W/REFL TO HCV RNA, QN, PCR Routine 01/10/2025 10:06 AM EDT Encounter for gynecological examination (general) (routine) without abnormal findings Anxiety Moderate episode of recurrent major depressive disorder (CMS/HCC) VITAMIN D,25-OH,TOTAL,IA Routine 01/10/2025 10:06 AM EDT Encounter for gynecological examination (general) (routine) without abnormal findings Anxiety Moderate episode of recurrent major depressive disorder (CMS/HCC) TSH W/REFLEX TO FT4 Routine 01/10/2025 1 0:06 AM EDT Encounter for gynecological examination (general) (routine) without abnormal findings Anxiety Moderate episode of recurrent major depressive disorder (CMS/HCC) LIPASE Routine 01/10/2025 10:06 AM EDT Encounter for gynecological examination (general) (routine) without abnormal findings Anxiety Moderate episode of recurrent major depressive disorder (CMS/HCC) LIPID PANEL, STANDARD Routine 01/10/2025 10:06 AM EDT Encounter for gynecological examination (general) (routine) without abnormal findings Anxiety Moderate episode of recurrent major depressive disorder (CMS/HCC) COMPREHENSIVE METABOLIC PANEL Routine 01/10/2025 10:06 AM EDT Encounter for gynecological examination (general) (routine) without abnormal findings Anxiety Moderate episode of recurrent major depressive disorder (CMS/HCC) CBC WITH AUTO DIFFERENTIAL Routine 01/10/2025 10:06 AM EDT Encounter for gynecological examination (general) (routine) without abnormal findings Anxiety Moderate episode of recurrent major depressive disorder (CMS/HCC) PAP SMEAR Routine 01/10/2025 9:40 AM EDT Encounter for gynecological examination (general) (routine) without abnormal findings CHLAMYDIA/N. GONORRHOEAE RNA, TMA, UROGENITAL Routine 01/10/2025 9:40 AM EDT Encounter for gynecological examination (general) (routine) without abnormal findings from Last 3 Months Results * (ABNORMAL) POCT Urinalysis (02/21/2025 6:01 [...] Date Urine 02/21/2025 6:01 PM EDT Susan Trevino PUMPER GAGER APPRENTICE POINT OF CARE TEST ENTER/EDIT O RDERABLES Final Result * Vitamin D, 25-Hydroxy, Total, Immunoassay (01/10/2025 10:06 AM EDT) Vitamin D 25-OH Total 35.5 >30 ng/mL [facility] Comment: Health Based Reference Values*< 20 ng/mL Feujcwvoq31-96 ng/mL Insufficient> 30 ng/mL Sufficient*Hayde JANE. N Engl J Med. 2007;357:266-280There is no well-established upper level of normal vitamin Dlevels. Some laboratories use 50 ng/mL as an upper limit ofnormal. However, toxicity is patient-dependent and may occurat any level. Careful correlation with the patient'spresentation is necessary and, if there is concern forvitamin D toxicity, treatment should be consideredirrespective of the serum level.Care must be taken in interpreting Vitamin D results fromdifferent laboratories and methodologies. Published datademonstrated that results from patients undergoinghemodialysis may show a negative bias when tested withvarious automated 25-OH vitamin D assays when compared toLC-MS/MS.When testing samples from patients whose predominant form ofVitamin D is Vitamin D2, such as patients receiving VitaminD2 supplementation, results that are subtherapeutic shouldbe confirmed with another method such as LC-MS/MS. Blood Venous blood specimen / Unknown 01/10/2025 10:06 AM EDT 01/10/2025 2:01 PM EDT Lisa Reddy MD LAB BLOOD ORDERABLES Final Re sult Performing Organization Address City/Va Hospital/ZIP Co de Phone Number [facility] [address] [place] [phone] * TSH W/Reflex to FT4 (01/10/2025 10:06 AM EDT) TSH reflex Free T4 1.05 0.32 - 4.0 uIU/mL [facility] Blood Venous blood specimen / Unknown 01/10/2025 10:06 AM EDT 01/10/2025 2:01 PM EDT Lisa Reddy MD LAB BLOOD ORDERABLES Final Re sult Performing Organization Address [facility]/Va Hospital/[facility] Co de Phone Number [facility] [address] [place] [phone] * (ABNORMAL) CBC auto differential (01/10/2025 10:06 AM EDT) White Blood Count 5.4 4.8 - 10.8 X10*3/uL [facility] Red Blood Count 4.56 4.20 - 5.50 X10*6/uL [facility] Hemoglobin 12.7 12.0 - 16.0 g/dl [facility] Hematocrit 38.7 37.0 - 47.0 % [facility] Mean Corpuscular Volume 84.9 80.0 - 98.0 fL [facility] Mean Corpuscular Hemoglobin 27.9 27.0 - 33.0 pg [facility] Mean Corpuscular HGB Conc 32.8 31.0 - 35.0 g/dl [facility] Red Cell Distribution Width 13.4 11.0 - 16.0 % [facility] Platelet Count 264 160 - 400 X10*3/uL [facility] Mean Platelet Volume 10.4 9.4 - 12.3 fL [facility] Neutrophils Percent Auto 65.0 45 - 73 % [facility] Imm Gran Pct Auto 0.6(H) 0.0 - 0.4 % [facility] Lymphocytes Percent Auto 28.6 20 - 40 % [facility] Monocytes Percent Auto 5.2 2 - 11 % [facility] Eosinophils Percent Auto 0.2 0 - 4 % [facility] Basophils Percent Auto 0.4 0 - 2 % [facility] NRBC Pct Auto 0.0 0.0 - 0.2 /100WBC [facility] Neutrophils Absolute Auto 3.5 2.0 - 8.3 x10*3/uL [facility] Imm Gran Abs Auto 0.03 0.00 - 0.03 X10*3/uL [facility] Lymphocytes Absolute Auto 1.6 1.2 - 4.9 X10*3/uL [facility] Monocytes Absolute Auto 0.3 0.1 - 1.2 X10*3/uL [facility] Eosinophils Absolute Auto 0.0 0.0 - 0.4 X10*3/uL [facility] Basophils Absolute Auto 0.0 0.0 - 0.2 X10*3/uL [facility] NRBC Abs Auto 0.000 0.0 - 0.012 X10*3/uL [facility] Blood Venous blood specimen / Unknown 01/10/2025 10:06 AM EDT 01/10/2025 2:01 PM EDT us Lisa Reddy MD LAB BLOOD ORDERABLES Final Re sult [facility] [address], [place] [phone] * Hepatitis C Antibody with Reflex to HCV, RNA, Quantitative, Real-Time PCR (01/10/2025 10:06 AM EDT) Hepatitis C Antibody Nonreactive Nonreactive [facility] Comment:Antibodies to HCV no t detected; does not exclude early acuteHCV infection. Blood Venous blood specimen / Unknown 01/10/2025 10:06 AM EDT 01/10/2025 2:01 PM EDT Lisa Reddy MD LAB BLOOD ORDERABLES Final Re sult Performing Organization Address City/Va Hospital/ZIP Co de Phone Number [facility] [address] [place] [phone] * HIV-1/2 Antigen and Antibodies, Fourth Generation, with Reflexes (01/10/2025 10:06 AM EDT) HIV AB/AG Nonreactive Nonreactive [facility] Comment:HIV-1 p24 Ag and/or HIV-1/HIV-2 Ab not detected.A test result that is nonreactive does not exclude thepossibility of exposure to or infection with HIV-1 and/orHIV-2. Nonreactive results in this assay for individualswith prior exposure to HIV-1 and/or HIV-2 may be due toantigen and antibody levels that are below the limit ofdetection of this assay.The [employer] HIV Ag/Ab Combo assay result andsupplemental assay results should be interpreted inconjunction with the patient's clinical presentation,history and other laboratory results. If the results areinconsistent with clinical evidence, additional testing issuggested to confirm the result. Blood Venous blood specimen / Unknown 01/10/2025 10:06 AM EDT 01/10/2025 2:01 PM EDT Lisa Reddy MD LAB BLOOD ORDERABLES Final Re sult Performing Organization Address City/Va Hospital/ZIP Co de Phone Number [facility] [address] [place] [phone] * Lipase (01/10/2025 10:06 AM EDT) Lipase 24 8 - 78 U/L [facility] Blood Venous blood specimen / Unknown 01/10/2025 10:06 AM EDT 01/10/2025 2:01 PM EDT Lisa Reddy MD LAB BLOOD ORDERABLES Final Re sult Performing Organization Address City/Va Hospital/ZIP Co de Phone Number [facility] [address] [place] [phone] * Lipid Panel, Standard (01/10/2025 10:06 AM EDT) Triglycerides 92 <150 mg/dL [facility] Comment:Desirable Triglyceri de: less than 150 mg/dLBorderline High Triglyceride 150-199 mg/dLHigh Triglyceride: 200-499 mg/dLVery High Triglyceride: greater than or equal to 5OO mg/dL Cholesterol 152 <200 mg/dL [facility] Comment:Desirable Cholestero l: less than 200 mg/dLBorderline High Cholesterol: 200-239 mg/dLHigh Cholesterol: greater than 239 mg/dL LDL Cholesterol Calculated 90 <100 mg/dL [facility] Comment:Desirable LDL: less than 100 mg/dLNear Optimal/Above Optimal LDL: 110- 129 mg/dLBorderline High LDL: 130-159 mg/dLHigh LDL: 160-189 mg/dLVery High LDL: greater than or equal to 190 mg/dL HDL Cholesterol 44 >40 mg/dL [facility] Comment:Desirable HDL: great er than 40 mg/dL Note: This HDL assay may give artificially low results in patients with liver disease. Blood Venous blood specimen / Unknown 01/10/2025 10:06 AM EDT 01/10/2025 2:01 PM EDT Lisa Reddy MD LAB BLOOD ORDERABLES Final Re sult Performing Organization Address City/Va Hospital/ZIP Co de Phone Number [facility] [address] [place] [phone] * (ABNORMAL) Comprehensive Metabolic Panel (01/10/2025 10:06 AM EDT) Sodium 142 135 - 145 mmol/L [facility] Potassium 4.3 3.3 - 5.1 mmol/L [facility] Chloride 108 96 - 108 mmol/L [facility] Carbon Dioxide 27 22 - 29 mmol/L [facility] Anion Gap 11(L) 12 - 20 [facility] Urea Nitrogen (BUN) 12 9 - 16 mg/dL [facility] Creatinine, Serum 0.64 0.5 - 1.4 mg/dL [facility] Estimated Glomerular Filt Rate >60 [facility] Comment:Chronic Kidney Disea se: Estimated GFR < 60 mL/min/1.07p4Fwyotb Kidney Disease: Estimated GFR < 15 mL/min/1.73m2 Glucose 98 60 - 115 mg/dL [facility] Calcium 9.2 8.4 - 10.2 mg/dL [facility] Bilirubin, Total 0.4 0.0 - 1.0 mg/dL [facility] Aspartate Amino Transferase 48(H) 5 - 31 U/L [facility] Alanine Aminotransferase 48(H) 0 - 31 U/L [facility] Total Protein 7.0 6.5 - 8.0 g/dL [facility] Albumin Level 4.5 3.5 - 5.0 g/dL [facility] Alkaline Phosphatase 66 39 - 117 U/L [facility] Blood Venous blood specimen / Unknown 01/10/2025 10:06 AM EDT 01/10/2025 2:01 PM EDT us Lisa Reddy MD LAB BLOOD ORDERABLES Final Re sult [facility] [address] [place] [phone] * Chlamydia/N. Gonorrhoeae RNA, TMA, Vaginal (01/10/2025 9:40 AM EDT) CT PCR NOT DETECTED Not Detect. [facility] Comment:A not detected test result does not exclude the possibilityof infection because test results can be affected byimproper specimen collection, concurrent antibiotic therapy,or the number of organisms in the specimen which may bebelow the sensitivity of the test. As with many diagnostictests, results from the Xpert CT/NG assay should beinterpreted in conjunction with other laboratory andclinical data available to the clinician.Xpert CT/NG performance has not been evaluated in patientsless than 14 years of age. The assay should not be used forthe evaluationof suspected sexual abuse or for other medico-legalindications. Additional testing is recommended in anycircumstance when false positive or false negative resultscould lead to adverse medical, social or psychologicalconsequences. NG PCR NOT DETECTED Not Detect. [facility] Comment:A not detected test result does not exclude the possibilityof infection because test results can be affected byimproper specimen collection, concurrent antibiotic therapy,or the number of organisms in the specimen which may bebelow the sensitivity of the test. As with many diagnostictests, results from the Xpert CT/NG assay should beinterpreted in conjunction with other laboratory andclinical data available to the clinician.Xpert CT/NG performance has not been evaluated in patientsless than 14 years of age. The assay should not be used forthe evaluationof suspected sexual abuse or for other medico-legalindications. Additional testing is recommended in anycircumstance when false positive or false negative resultscould lead to adverse medical, social or psychologicalconsequences. Swab (Vaginal Swab) 01/10/2025 9:40 AM EDT 01/10/2025 1:50 PM EDT us Lisa Reddy MD LAB MICROBIOLOGY - GENERAL OR DERABLES Final Result Performing Organization Address City/State/[facility] Co de Phone Number [facility] [address] [place] [phone] * Pap Smear (01/10/2025 9:40 AM EDT) Swab Cervix uteri structure / Unknown 01/10/2025 9:40 AM EDT 01/11/2025 8:14 AM EDT Narrative [facility] - 01/13/2025 10:14 AM EDT ----- ------- Name: Yesy Rojas Age/Sex: 29/[facility] 1995 [id number] [id number] Attend Dr: Lisa Reddy MD Re01/10/25 Status: DEP REF Location: [facility] Disch: ----- ------- SPEC : [id number] RECD: 01/11/25 STATUS: MARCIN YOUNG NUM: [id number] MATEO: 01/10/[address] [facility] [address]: Lisa Reddy MD ENTERED: 01/11/25 SP TYPE: Pap Smr [facility] DR: ORDERED: Pap Smear Interpretation Satisfactory for evaluation. Negative for intraepithelial lesion or malignancy. Clinical Information LMP: Unknown date Previous PAP test: 09/2021, WNL Material Received ThinPrep-Cervical PAP Disclaimer As of March 23, 2024, the technical services to include automated prescreening performed by the ThinPrep Imaging System, PAP screening and HPV testing will be performed at [facility] (CLIA #[id number]), [address] [place] [address]. Testing for HPV was performed using the Mony SHA 6800 system. The presence of HPV in the female genital tract is associated with a number of diseases, including cervical carcinoma. The HPV DNA high risk pool tests for HPV 31, 33, 35, 39, 45, 51, 52, 56, 58, 59, 66 and 68. The testing for HPV 16 and 18 genotypes has also been performed. A positive result indicates detection of nucleic acid sequences from one or more subtypes, whereas a negative result indicates such sequences were not detected. All professional services are performed by [facility] ([address] [place] [address], [place] [address]; ; CLIA #[id number]). The PAP Test is a screening procedure with the inherent possibility of both false negative and false positive results. Results should be interpreted in the context of historic and current clinical findings. Reliability of the PAP Test is enhanced by performing the test on a regular repetitive basis. ----- ------- Signed (signature on file) GENE Mata (ASC) 01/13/25 1014 ----- ------- END OF REPORT Lisa Reddy MD LAB CYTOLOGY ORDERABLES Final Result [facility] [address] [place] [phone] from Last 3 Months Insurance Care Teams Casing Flusher Relationship Specialty Start Date End Date Lisa Reddy MD [address] [place] [phone] PCP - General Family Medicine 04/05/12
--- OUTSIDE RECORDS SUMMARY | 2025-02-22 14:52 | XMS_ITS | Encounter Summary ---
Author Organization [employer] Address [address] [facility] 7 [place] [address] Care Team Providers Care Medium Cycle Salesperson Name Role Phone Lisa Reddy MD Primary Care Provider [phone] Encounter Details Date Type Department Care Team ([facility] Contact Info) Description 04/20/2024 Orders Only [facility] MED [facility] PEDS [address] [place], [place] [phone] Lisa Reddy MD [address] [place] [address] Social History Tobacco Use Types Packs/Day Years [...] EST) Adenovirus PCR Not Detected Not Detect. [facility] Bordetella pertussis PCR Not Detected Not Detect. [facility] Comment:Interpret results wi th caution. If B. pertussis isspecifically suspected, additional testing using analternate method is recommended. Bordetella parapertussis PCR Not Detected Not Detect. [facility] Chlamydia pneumoniae PCR Not Detected Not Detect. [facility] Coronavirus 229E PCR Not Detected Not Detect. [facility] Coronavirus HKU1 PCR Not Detected Not Detect. [facility] Coronavirus NL63 PCR Not Detected Not Detect. [facility] Coronavirus OC43 PCR Not Detected Not Detect. [facility] SARS-CoV-2 PCR Not Detected Not Detect. [facility] Comment:SARS-CoV-2 not detec tato by real-time RT-PCR.Note: If clinical suspicion for Sars-CoV-2 is high, continueto maintain precautions and consider repeat testing.Test results should be interpreted in the context ofclinical findings and other laboratory data.Rare polymorphisms exist that could lead to false-negativeor false-positive results. If results do not match theclinical findings, additional testing should be considered.Results reported to [facility].This test has been authorized by the FDA under the EmergencyUse Authorization (EUA) for use by authorized laboratories. Influenza A PCR Not Detected Not Detect. [facility] Influenza B PCR Not Detected Not Detect. [facility] Human metapneumovirus PCR Not Detected Not Detect. [facility] Rhino/Enterovirus PCR Not Detected Not Detect. [facility] Mycoplasma pneumoniae PCR Not Detected Not Detect. [facility] Parainfluenza 1 PCR Not Detected Not Detect. [facility] Parainfluenza 2 PCR Not Detected Not Detect. [facility] Parainfluenza 3 PCR Not Detected Not Detect. [facility] Parainfluenza 4 PCR Not Detected Not Detect. [facility] RSV PCR Not Detected Not Detect. [facility] Resp Panel NA Note See Note [facility] Comment:All results must be correlated [...] assay is performed by Multiplexed PCR, utilizing [employer]. 05/16/2024 3:00 PM EST 05/16/2024 5:23 PM EST us Chanel Caputo STOCK REPLENISHER LAB BLOOD ORDERABLES Final Res ult [facility] [address] [place] [address] [phone] documented in this encounter Visit Diagnoses Not on filedocumented in this encounter Additional Health Concerns Assessment Noted Time PHQ-9 Depression Total Score: 11 024 12:10 PM EDT documented as of this encounter Care Teams Medium Cycle Salesperson Relationship Specialty Start Date End Date Lisa Reddy MD [address] [place] [address] PCP - General Family Medicine 04/05/12 documented as of this encounter
--- OUTSIDE RECORDS SUMMARY | 2025-02-22 14:52 | XMS_ITS | Encounter Summary ---
Author Organization [employer] Address 75 [facility] 7 [place] [address] Care Team Providers Care Head Charger Name Role Phone Lisa Reddy MD Primary Care Provider [phone] Reason for Visit * Reason Onset Date Comments Appointment Request 10/31/2024 Encounter Details Date Type Department Care Team ([facility] st Contact Info) Description 10/31/2024 Telephone [facility] MEDICINE [address] [place] [address] Lisa Reddy MD [address] [place] [phone] Appointment Request Social History Tobacco Use Types Packs/Day Years [...] AM EDT documented as of this encounter Miscellaneous Notes * Telephone Encounter - Shima Hodgson - 10/31/2024 3:57 PM EDT Tc from pt requesting r/s f/u androgenic alopecia appointment with Valerie. documented in this encounter Plan of Treatment Not on file documented as of this encounter Visit Diagnoses Not on filedocumented in this encounter Additional Health Concerns Assessment Noted Time PHQ-9 Depression Total Score: 11 024 12:10 PM EDT documented as of this encounter Care Teams Head Charger Relationship Specialty Start Date End Date Lisa Reddy MD [address] [place] [phone] PCP - General Family Medicine 04/05/12 documented as of this encounter
--- OUTSIDE RECORDS SUMMARY | 2025-02-22 14:52 | XMS_ITS | Encounter Summary ---
Author Organization [employer] Address 75 [facility] 7t [place] [address] Care Team Providers Care Chemist Water Purification Name Role Phone Lisa Reddy MD Primary Care Provider [phone] Encounter Details Date Type Department Care Team (Latest Contact Info) Description 02/21/2025 Travel Social History Tobacco Use Types Packs/Day Years [...] documented as of this encounter Care Teams Chemist Water Purification Relationship Specialty Start Date End Date Lisa Reddy MD [address] [place] [address] PCP - General Family Medicine 04/05/12 documented as of this encounter
--- OUTSIDE RECORDS SUMMARY | 2025-02-22 14:52 | XMS_ITS | Encounter Summary ---
Author Organization [employer] Address [address] [facility] 7 [place] [address] Care Team Providers Care Commercial Loan Reviewer Name Role Phone Lisa Reddy MD Primary Care Provider [phone] Reason for Visit * Reason Onset Date Comments Nurse Triage 02/21/2025 Encounter Details Date Type Department Care Team ([facility] st Contact Info) Description 02/21/2025 Telephone [facility] MEDICINE [address] [place] [address] Lisa Reddy MD [address] [place] [address] Nurse Triage Social History Tobacco Use Types Packs/Day Years [...] encounter Miscellaneous Notes * Telephone Encounter - Teodora Jose LPN - 02/21/2025 3:33 PM EDT Triage call returned to patient at this time no answer. Left voice mail to return call to [phone]. Patient reached on second attempt. Reports onset of bladder pressure with voiding starting yesterday. Note urine to be dark yellow so increased fluid intake. Urine now pale yellow and patient reportsfrequency and pelvic pressure with voiding and post voiding. No noted fever. Disposition reviewed and Patient in agreement with plan. . No PCP or Team appts. Available at time of call. [facility] In [facility] hours and availability provided for patient evaluation. Triage nurse informed the patient may have a wait of 1-2 hours because Walk In Clinic may have delays due to patient volume or symptom acuity. Insurance verified as active. Protocol Used: Urinary Symptoms (Adult) Protocol-Based Disposition: See in Office or Video Visit Today Video visit not offered Positive Triage Question: * Urinating more frequently than usual (i.e., frequency) OR new-onset of the feeling of an urgent need to urinate (i.e., urgency) * All higher-acuity triage questions were negative Care Advice Discussed: * Reasons To Call Back - Fever occurs - Pain or burning with urination - Unable to urinate and bladder feels full - You become worse * Telephone Encounter - Boo Cross - 02/21/2025 3:26 PM EDT Symptom: Urine Symptoms Outcome: Schedule a same-day appointment or talk to a nurse or provider today Reason: Caller denied all higher acuity questions documented in this encounter Plan of Treatment Not on file documented as of this encounter Visit Diagnoses Not on filedocumented in this encounter Additional Health Concerns Assessment Noted Time PHQ-9 Depression Total Score: 5 01/11/20 25 9:35 AM EDT documented as of this encounter Care Teams Commercial Loan Reviewer Relationship Specialty Start Date End Date Lisa Reddy MD [address] [place] [address] PCP - General Family Medicine 04/05/12 documented as of this encounter
--- OUTSIDE RECORDS SUMMARY | 2025-02-22 14:52 | XMS_ITS | Clinical Summary ---
Author Organization [facility] Address [address] [place] [address] Care Team Providers Care Knot Borer Name Role Phone Unavailable Primary Care Provider [...] 05/04/2022 Social Influencers of Health Screening 05/04/2022 Depression Screening 06/01/2024 COVID-19 Vaccine ( - 2023-2 5 season) 2025 Influenza Vaccine (#1) 2025 RSV Immunization Adult Patie nts (1 - 1-dose 75+ series) 2071 HIB Vaccines Aged Out No longer eligi [...]
--- OUTSIDE RECORDS SUMMARY | 2025-02-22 14:52 | XMS_ITS | Clinical Summary ---
Author Organization [facility] Address [address] [place] [address] Care Team Providers Care Ecological Technical Officer Name Role Phone Unavailable Primary Care Provider [...] mcg/actuation inhalerIndication s:Mild intermittent asthma without complication ([facility]),Routine general medical examination at a health care facility Inhale 2 Puffs into the lungs every 4 (four) hours as needed for shortness of breath or wheezing 18 g 2 Active doxycycline hyclate (VIBRAMYCIN) 100 mg capsuleIndication s:Chlamydia Take 1 Capsule by mouth 2 (two) times daily 14 Capsule 1 2 Active fluoride, sodium, (CLINPRO 5000) 1.1 % psteIndications:C adrianna [place] twice a day every day for 2 minutes. Expectorate,bu t do not rinse,eat or drink for 30 minutes after using this. 112 g 3 2 Active Active Problems No known active problems Immunizations Immunization Administration Dates Next Due DTAP (DAPTACEL),5 PERTUSSIS ANTIGENS ,07/09/1997,1996,07/30,1996 Flu, Multi Dose 0.5 ML 03/30/2018,04/15/2017, Flu, Preservative Free 03/14/2022,03/14/2014 HEP B, PED/ADOL (TLSVCIE-Y-EAKX/RECOMBIVAX-PEDS) 1996,1996,1996 HPV 9 (Gardasil) 06/28/2019 HPV, QUADRIVALENT 10/08/2007,06/09/2007,04/07/20 07 Hep B,adult,adjuvanted (HEPLISAV) 10/21/2021,10/21/2021 Hib (HbOC) 07/06/1997, 7,1996,10/1996 INFLUENZA, SEASONAL, INJECTABLE 03/08/2009,04/07 IPV (IPOL) 08/17/2000, 7,1996,10/1996 MENINGOCOCCAL MCV4P (MENACTRA) 12/08/2014,2006 MMR (MMR II/Priorix) 08/17/2000 Moderna COVID-19 Vaccine, re d cap blue label, 12+ Primary Series 10/16/2020,09/19/2020 [facility] State Funded Flu Vaccine 03/18/2013, 012,05/02/2010 TDAP [...] 08/29/2022 08/29/2021 Relationship Safety Screening/Counseling 08/29/2022 08/29/2021 Alcohol and Drug Screen 06/01/2024 08/29/2021 Depression Annual Screen 06/01/2024 08/29/2021 Hypertension Screening (#1) 12/18/2024 Dental BW 12/31/2024 12/30/2023 Dental Examination 12/31/2024 12/30/2023 Dental Perio Charting 12/31/2024 12/30/2023 Dental Prophy 12/31/2024 12/30/2023 Ccr-IVUMP-80 ( season) 01/30/202510/16/2 021, 09/19/2020 Imm-Influenza (#1) 2025 03/14/2022, 1 , 04/15/2017, Additional history exists Imm-DTaP/Tdap/Td (9 - Td or Tdap) 11/09/2031 11/08/2021, 12/08/2014, 04/07/2007, Additional history exists Imm-HPV Completed 06/28/2019, 0 01/2008, 06/09/2007, Additional history exists Imm-Hepatitis B Completed 10/21/2021, [...] AG/AB, 4TH GEN NON-REAC TIVE NON-REAC TIVE [facility] Comment: HIV-1 antigen and HIV-1/HIV-2 antibodies [...] purpose. For additional information please refer to http://education.[employer]/faq/CSX479 (This link is being provided for informational/ educational purposes only.) The performance of this assay has not been clinically validated in patients less than 2 years old. Blood Blood / Unknown 08/29/2021 2 :12 PM EDT 08/29/2021 2:13 PM EDT Morales Hooker PA-C LAB - BLOOD DRAW Final Result [facility] [employer] [address] [address], [facility] [address] [address] from Last 3 Months or Most Recently Relevant to Health Maintenance Insurance [employer] Member Subscriber Plan / Payer (Ef fective 2021-Present) Name:Yesy Rojas Relation to Subscriber:Self Name:Yesy Rojas Payer ID:[id number] Type:Indemnity Address: [facility] [address] [place] [address] [place] DENT[place]
--- OUTSIDE RECORDS SUMMARY | 2025-02-22 14:52 | XMS_ITS | Clinical Summary ---
Author Organization [facility] Address [address] [place] [phone] Phone Care Team Providers Care Ore Grader Name Role Phone Unavailable Primary Care Provider [...] 04/07/2017 04/07/2007, 08/17/2000, 07/09/1997, Additional history exists Influenza Vaccines (#1) 2024 05/02/20, 03/08/2009, 04/07/2007 COVID-19 Vaccine ( season) 2025 Hepatitis B Vaccines Completed 1996, 1996, 1996 [...]
--- OUTSIDE RECORDS SUMMARY | 2025-02-22 14:52 | XMS_ITS | Encounter Summary ---
Author Organization [facility] Address [address] [place] [address] Phone Care Team Providers Care Venetian Blind Cleaner Name Role Phone Clover Harrison MD Primary Care Provider [phone] Encounter Details Date Type Department Care Team (Late st Contact Info) Description 01/15/2017 Conversion Encounter [facility] - [address] [address] Social History Tobacco Use Types Packs/Day Years Used Date Smoking Tobacco: Never Assessed Comments Unknown Sex and Gender Information Value Date Recorded Sex Assigned at Not on file Legal Sex Female 4:40 PM EDT Gender Identity Not on file Sexual Orientation Not on file documented as of this encounter Plan of Treatment Not on file documented as of this encounter Visit Diagnoses Not on filedocumented in this encounter Care Teams Venetian Blind Cleaner Relationship Specialty Start Date End Date Clover Harrison MD [address] [place] [address] PCP - General 01/09/17 11/26/22 documented as of this encounter
--- OUTSIDE RECORDS SUMMARY | 2025-02-22 14:52 | XMS_ITS | Encounter Summary ---
Author Organization [employer] Address 75 [facility] 7 [place] [address] Care Team Providers Care Aircraft Painter Name Role Phone Lisa Reddy MD Primary Care Provider [phone] Encounter Details Date Type Department Care Team ([facility] Contact Info) Description 01/13/2025 Results Follow-Up [facility] MED & PEDS [address] [place], [place] [phone] Lisa Reddy MD [address] [place] [address] Pap Smear, Chlamydia/N. Gonorrhoeae RNA, TMA, Vaginal, CBC auto differential, Additional followed-up results: 7 Social History Tobacco Use Types Packs/Day Years [...] is your housing situation today? I have aliciashahnaz leigh 01/02/[address] you [...] documented as of this encounter Care Teams Aircraft Painter Relationship Specialty Start Date End Date Lisa Reddy MD [address] [place] [address] PCP - General Family Medicine 04/05/12 documented as of this encounter
--- OUTSIDE RECORDS SUMMARY | 2025-02-22 14:52 | XMS_ITS | Encounter Summary ---
Author Organization [employer] Address [address] [facility] [address] [place] [address] Care Team Providers Care Plywood Scarfer Tender Name Role Phone Lisa Reddy MD Primary Care Provider [phone] Reason for Visit * Reason Onset Date Comments Nurse Triage 11/16/2024 Encounter Details Date Type Department Care Team ([facility] st Contact Info) Description 11/16/2024 Telephone [facility] CH[facility] MED & PEDS [address] [place] [address] Lisa Reddy MD [address] [place] [address] Nurse Triage Social History Tobacco Use Types [...] housing situation today? I have aliciashahnaz leigh 12/31/[address] you [...] encounter Miscellaneous Notes * Telephone Encounter - Ranjana Banks RN - 11/16/2024 12:52 PM EDT Triage call Pt reports abnomal vaginal bleeding. Pt reports periods are regular but, Pt has startedhaving some spotting and with wiping is passing small blood clots . Period is not due for another week. Pt did take test last week but, was neg. Pt reports some cramping as well. Pt is advised to obtain another test and use with first urine of the morning. Pt is advised to call b ack for apt once test results are obtained. Pt agrees with this disposition and plan. Protocol Used: Vaginal Bleeding - Abnormal (Adult) Protocol-Based Disposition: Home Care Positive Triage Question: * Mild bleeding or Spotting and suspected (e.g., missed last period) * All higher-acuity triage questions were negative Care Advice Discussed: * Reasons To Call Back - Severe abdomen pain or lightheadedness occurs - test is positive - Bleeding worsens - Bleeding or spotting lasts over 7 days - You become worse * Telephone Encounter - Lindsay Gil - 11/16/2024 12:33 PM EDT Symptom: Vaginal Bleeding - Not Outcome: Schedule an urgent appointment (within 4 hours) or talk to a nurse or provider soon Reason: Started within the past 3 days The caller accepted this outcome. documented in this encounter Plan of Treatment Not on file documented as of this encounter Visit Diagnoses Not on filedocumented in this encounter Additional Health Concerns Assessment Noted Time PHQ-9 Depression Total Score: 11 024 12:10 PM EDT documented as of this encounter Care Teams Plywood Scarfer Tender Relationship Specialty Start Date End Date Lisa Reddy MD [address] [place] [address] PCP - General Family Medicine 04/05/12 documented as of this encounter
== END 2025-02-21 18:07 | disposition home or self-care (01) ==
LOC: HO.LNP 18:06
PROVIDERS: Visit Provider Nurse Practitioner Family
DX: R30.0 Dysuria (principal)
CPT/HCPCS: 87086; 87088; 87186